=== PATIENT | female | born 1985 | race Two or more races ===

== ENCOUNTER → 2024-05-27 15:59 | Outpatient (REF) | payer OTHER, SELFPAY | LOC: PNTC 15:59 | PROVIDERS: ATTENDING PHYSICIAN Obstetrics & Gynecology | DX: Z36.0 Encounter for antenatal screening for chromosomal anomalies (principal); Z36.82 Encounter for antenatal screening for nuchal translucency | CPT/HCPCS: 76801; 76813 ==

== ENCOUNTER 2024-11-15 14:53 | Emergency (ER) | payer OTHER, SELFPAY ==
[2024-11-15 14:59] VITALS: BP 141/95
[2024-11-15 15:02] VITALS: BP 115/83
--- NOTE | 2024-11-15 18:03 | ED.GENMED ---
History of Present Illness
General
Chief Complaint: Jaw Pain
Source: patient
Exam Limitations: none
Time Seen by Provider: 11/15/24 16:11
Nursing documentation reviewed up to this point in time: agreed with
History of Present Illness
History of Present Illness:
39-year-old female presenting to the emergency department today with concerns of potential jaw dislocation prior to arrival. Her description her left side of her jaw seem to come out of place she put this back in the place otherwise has had some
achiness to the area since. Denies any additional symptoms no trouble swallowing or breathing increased discomfort with opening her mouth. This was after chewing on some chocolate.
Past History
Past History
ED Past Medical History: Psychiatric (ADHD)
ED Past Surgical History: and Other ([place] teeth extraction)
Social History
Tobacco: Non-smoker
Alcohol: None
Drug: None
Living: with family
Review of Systems
Review of Systems
Allergies reviewed?: Yes
All Other Systems: ROS reviewed and negative except as documented in HPI and ROS
Phy Exam
Physical Exam
Physical Exam:
GENERAL: Alert , in no apparent distress
EYE: pupils equal and reactive
NECK: Supple, no significant adenopathy.
ENT: No focal tenderness to the jaws bilaterally. No visible changes able to open the mouth roughly 1 cm with no visible abnormalities to the oral mucosa. o/p clr, mmm.
CARDIAC: Regular rate and rhythm .
LUNGS: Clear breath sounds bilaterally, no acute respiratory distress, no wheezes/rales/rhonchi
ABDOMEN: Soft, without focal tenderness, no r/g, no cvat
NEUROLOGICAL: Alert and oriented, no focal neuro deficits
SKIN: Warm and dry, skin intact.
MUSCULOSKELETAL: No edema, well perfused.
PSYCH: Normal and appropriate interaction.
Course
Vital Signs
Initial and Last Documented VS:
Initial Vital Signs
Temp Pulse Resp BP Pulse Ox
98.5 F 101 18 141/95 99
11/15/24 14:59 11/15/24 14:59 11/15/24 14:59 11/15/24 14:59 11/15/24 14:59
Last Documented Vital Signs
Temp Pulse Resp BP Pulse Ox
98.5 F 101 18 115/83 99
11/15/24 14:59 11/15/24 14:59 11/15/24 14:59 11/15/24 15:02 11/15/24 14:59
MDM/Problems Addressed
MDM/Problems Addressed:
39-year-old female presenting to the emergency department today with concerns of what sounds to be a description of a jaw dislocation prior to arrival that she relocated prior to arrival. Currently 38 weeks . Reassuring physical
examination here. No evidence of fracture no focal tenderness. Otherwise advised for soft diet and close outpatient follow-up. Return precautions given.
*Critical Care Note
Total Time (30-74mins, 75-104mins- exclusive of procedures): Not Applicable
ED Attending Note
-
Portions of this chart may have been created with voice recognition software.� Occasional wrong word or��sound alike� substitutions may have occurred due to the inherent limitations of voice recognition software.
Discharge Plan
Departure
Patient Disposition: Home (Routine Discharge)
Date of Disposition: 11/15/24
Time of Disposition: 18:04
Patient with high blood pressure during this ER visit?: No
Condition: Good
Covid-19: Not Applicable
Discharge Problem:
Dislocated jaw
Instructions: Dislocated Jaw (DC)
Prescriptions:
No Action
levothyroxine [Synthroid] 25 mcg Tablet
25 mcg PO DAILY
prenat.vits,willam,lbd-wjji-cotjm Tablet
1 tab PO DAILY
acetaminophen 325 mg Tablet
650 mg PO Q4HPRN PRN (Reason: mild pain) Qty: 0 0RF
sennosides-docusate sodium [Senna Plus] 8.6-50 mg Tablet
1 tab PO DAILYPRN PRN (Reason: constipation) Qty: 0 0RF
levothyroxine 25 mcg Tablet
25 mcg PO DAILY AT 0700 Qty: 0 0RF
ibuprofen 600 mg Tablet
400 mg PO Q4HPRN PRN (Reason: moderate pain/cramps) Qty: 0 0RF
Referrals:
Pk Cary DO [Family Provider] -
Steve Brian MD [Active] - Follow up in 5-7 days
Activity Restrictions/Additional Instructions:
You came to the emergency department today with concerns of a jaw issue.. Reassuring assessment. You may have had a dislocated jaw that self reduced. Please follow-up with ENT as needed. Return to the emergency department any worsening, new or
concerning symptoms.
Interventions
Interventions:
*Risk Screen - Suicide Last Done: 11/15/24 14:59
*General Assessment Last Done: 11/15/24 14:59
*Neglect/Abuse Screening Last Done: 11/15/24 14:59
*ED COVID-19 Vaccine History Last Done: 11/15/24 14:59
Discharge Date and Time
Print Language: GEORGIAN
== END 2024-11-15 18:09 | disposition home or self-care (01) ==
LOC: EMR 14:53
PROVIDERS: EMERGENCY PHYSICIAN Emergency Medicine; FAMILY PHYSICIAN Family Medicine
DX: S03.00XA Dislocation of jaw, unspecified side, initial encounter (principal); X58.XXXA Exposure to other specified factors, initial encounter; Z33.1 Pregnant state, incidental; Z88.8 Allergy status to other drugs, medicaments and biological substances
CPT/HCPCS: 99282

== ENCOUNTER 2024-12-01 21:11 | Inpatient (IN) | payer OTHER, SELFPAY ==
[2024-12-01 21:27] VITALS: BP 130/76; BMI 37.5
[2024-12-01 22:11] LABS: % Basophils 0.2 % (0-2); % Eosinophils 0.3 % (0-6); % Immature Granulocytes 0.4 % (0-0.5); % Lymphocytes 11.7 % (20.5-51.1); % Monocytes 3.5 % (1.7-9.3); % Neutrophils 83.9 % (42.2-75.2); Absolute Immature Granulocytes 0.1 10^3/uL (0-0.05); Absolute Lymphocytes 1.3 10^3/uL (1.2-3.4); Absolute Monocytes 0.4 10^3/uL (0.1-0.6); Absolute Neutrophils 9.6 10^3/uL (1.4-6.5); Hematocrit 37.6 % (37.0-47.0); Hemoglobin 12.8 g/dL (12.0-16.0); Mean Corpuscular Hgb 29.1 pg (27.0-31.0); Mean Corpuscular Volume 85.5 fL (81.0-99.0); Mean Platelet Volume 9.1 fL (7.4-10.4); Nucleated Red Blood Cells % 0 %; Platelet Count 356 10^3/uL (130-400); White Blood Cell Count 11.4 10^3/uL (4.8-10.8)
[2024-12-01] MEDS: SUBLIMAZE 100 MCG EPIDURAL (22:55)
[2024-12-01] MEDS: FENTANYL/BUPIVACAINE 100 EPIDURAL (22:55)
[2024-12-02] MEDS: PRENATAL PLUS PO ×2 (06:58→08:28)
[2024-12-02] MEDS: SYNTHROID 50 MCG PO (06:58)
[2024-12-02] MEDS: ZOFRAN 4 MG IV (07:34)
[2024-12-02] MEDS: FENTANYL/BUPIVACAINE 100 EPIDURAL (07:45)
[2024-12-02] MEDS: PITOCIN 30 UNITS/NSS 500 ML IV (09:59)
[2024-12-02] MEDS: TYLENOL 650 MG PO (12:10)
[2024-12-02] MEDS: MOTRIN 600 MG PO (21:08)
[2024-12-03 04:42] LABS: Hemoglobin 10.6 g/dL (12.0-16.0)
[2024-12-03] MEDS: SYNTHROID 50 MCG PO (05:45)
[2024-12-03] MEDS: PRENATAL PLUS 1 TABLET PO (08:59)
[2024-12-03] MEDS: SENOKOT-S 1 TABLET PO (08:59)
[2024-12-03] MEDS: MOTRIN 600 MG PO ×2 (12:00→20:42)
[2024-12-03] MEDS: TYLENOL 650 MG PO ×2 (12:01→20:43)
[2024-12-03] MEDS: FEOSOL 325 MG PO (21:41)
[2024-12-04] MEDS: SYNTHROID 50 MCG PO (06:15)
[2024-12-04] MEDS: PRENATAL PLUS 1 TABLET PO (09:35)
[2024-12-04] MEDS: FEOSOL 325 MG PO (09:35)
[2024-12-04] MEDS: MOTRIN 600 MG PO (09:38)
[2024-12-04] MEDS: TYLENOL 650 MG PO (09:38)
[2024-12-04] MEDS: SENOKOT-S 1 TABLET PO (09:40)
[2024-12-05 16:37] LABS: Syphilis/T. pallidum Ab Reflex Negative (Negative)
== END 2024-12-04 15:33 | disposition home or self-care (01) | DRG 807 ==
LOC: LDRP 21:11
PROVIDERS: Obstetrics & Gynecology; Student in an Organized Health Care Education/Training Program; ADMITTING PHYSICIAN Obstetrics & Gynecology
PROC: 10E0XZZ Delivery of Products of Conception, External Approach (ICD-10-PCS; 2024-12-02)
PROC: 0UQMXZZ Repair Vulva, External Approach (ICD-10-PCS; 2024-12-02)
DX: O34.219 Maternal care for unspecified type scar from previous cesarean delivery (principal); Z37.0 Single live birth; O70.0 First degree perineal laceration during delivery; Z3A.40 40 weeks gestation of pregnancy; O99.284 Endocrine, nutritional and metabolic diseases complicating childbirth; E03.9 Hypothyroidism, unspecified
CPT/HCPCS: 36415; 85014; 85018; 85025; 86780; 86850; 86900; 86901

== ENCOUNTER 2025-06-23 00:39 | Emergency (ER) | payer OTHER, SELFPAY ==
[2025-06-23 00:43] VITALS: BP 146/93
--- NOTE | 2025-06-23 04:17 | ED.GENMED ---
History of Present Illness
General
Chief Complaint: Throat Problem
Source: patient
Exam Limitations: none
Time Seen by Provider: 06/23/25 04:11
Nursing documentation reviewed up to this point in time: agreed with
History of Present Illness
History of Present Illness:
Note:
CHIEF COMPLAINT(S)
Difficulty swallowing and persistent coughing with painful throat irritation following ingestion of medication tablets.
HISTORY OF PRESENT ILLNESS
The patient is a 40-year-old female with a past medical history ADHD, anxiety, depression, who presented with complaints of persistent coughing, throat irritation, and difficulty swallowing after ingesting two magnesium glycinate tablets. She
reports that upon swallowing the tablets, she immediately felt as though they were stuck, which prompted her to cough vigorously. The coughing led to emesis, which was repeated four times, resulting in the expulsion of one whole pill. She believes
that when she was coughing, the other pill broke and the powder within the pill she inhaled. Despite her efforts to alleviate the sensation by changing positions, the feeling of an obstruction persisted, accompanied by a burning sensation in her
throat, intensified with each cough. She described a persistent chalky taste with each cough, indicative of potential tablet residue.
After attempting various positions to alleviate discomfort, the sensation persisted, leading her to seek medical attention. The patient did not experience dyspnea at the time of ingestion but noted significant discomfort. After waiting here for some
time, she noted that drinking water provided some relief to the burning sensation experienced in her tongue and nose. However, she continues to feel a burning sensation on her tongue when coughing. When she is not coughing, she has no burning
sensation. She has no pain with swallowing.
PHYSICAL EXAM
- Nursing notes reviewed and vital signs reviewed.
General: Patient is well appearing and in no acute distress; non-toxic
Skin: Warm and dry, no rashes or lesions
Head: Normocephalic, atraumatic
Eyes: Sclera non-icteric. EOMs intact.
Mouth: Uvula midline, mild pharyngeal erythema
Cardiac: Regular rate and rhythm, no murmurs
Pulm: Normal respiratory effort, no wheezes, rales, rhonchi, no stridor, lungs clear to auscultation
Abdomen: No abdominal tenderness to palpation
Neuro: CN II-XII intact, no focal neurologic deficits.
Psychiatric: Appropriate mood and affect.
PLAN
- Initiate treatment with nebulized saline to provide moistening and relief to the throat and respiratory passages.
- Encourage the use of [id number] nebulizers to maintain relief over the next few days.
- Reassess if symptoms worsen or if productive cough with mucus, fever, or signs of infection such as pneumonia develop.
- Environmental Resource Specialist the patient to avoid magnesium tablets for a few days to allow healing and prevent further irritation.
- Provide a saline solution prescription to the patient�s pharmacy.
- Follow-up is recommended if new symptoms arise or existing symptoms worsen.
DIFFERENTIAL DIAGNOSIS
The differential diagnosis includes, in no particular order and is not limited to:
1. Foreign body aspiration
2. Esophageal obstruction
3. Pill esophagitis
4. Esophageal ulceration
5. Tracheitis
6. Acute bronchitis
7. Laryngitis
8. Chemical irritation of the esophagus
9. Aspiration pneumonia
10. Gastroesophageal reflux disease
CHART REVIEW
Reviewed obstetrics discharge summary from 12/02/2024
MDM/disposition
40-year-old female presents emergency room today with concerns of aspiration of powder pill capsule. She is attempting to swallow a large magnesium pills at the same time. She normally takes 1 at a time. When she is attempting to swallow, she
thought the pill got stuck in her esophagus and she threw up vomiting wanting the pills. When she threw up, she started to feel some powder and started coughing. She aspirated some of the powder. On physical exam she is well-appearing no acute
distress. Well she has been in the emergency department. She has been coughing up the powder and she now feels much more comfortable. She has been drinking water which has been helping. She also received a nebulized saline treatment which also
improved her symptoms. She does not appear to have any pharyngeal pain or pain with swallowing, doubt pill esophagitis. Suspect tracheal irritation from aspiration. X-ray shows no evidence of aspiration pneumonia. Soft tissue neck x-ray shows no
foreign body. Patient stable for discharge. Discussed follow-up with PCP.
Past History
Past History
ED Past Medical History: Psychiatric (ADHD)
ED Past Surgical History: and Other ([place] teeth extraction)
Social History
Tobacco: Non-smoker
Alcohol: None
Drug: None
Living: with family
Phy Exam
Physical Exam
Physical Exam:
see hpi
Course
Orders/Labs/Results
Orders:
Orders
06/23/25 00:54
CR Soft Tissue Neck Urgent
Comment:
Reason For Exam: pill aspiration
Chest [CR Chest - 2 Views ] Urgent
Comment:
Reason For Exam: pill aspiration
Vital Signs
Initial and Last Documented VS:
Initial Vital Signs
Temp Pulse Resp BP Pulse Ox
98.0 F 88 20 146/93 98
06/23/25 00:43 06/23/25 00:43 06/23/25 00:43 06/23/25 00:43 06/23/25 00:43
Last Documented Vital Signs
Temp Pulse Resp BP Pulse Ox
98.0 F 64 18 118/72 98
06/23/25 00:43 06/23/25 05:11 06/23/25 05:11 06/23/25 05:11 06/23/25 05:11
*Pulse Oximetry
SaO2: 98
Oxygen Mode of Delivery: Room air
Patient hypoxic: no
*Critical Care Note
Total Time (30-74mins, 75-104mins- exclusive of procedures): Not Applicable
ED Attending Note
-
Portions of this chart may have been created with voice recognition software.� Occasional wrong word or��sound alike� substitutions may have occurred due to the inherent limitations of voice recognition software.
Discharge Plan
Departure
Patient Disposition: Home (Routine Discharge)
Date of Disposition: 06/23/25
Time of Disposition: 04:57
Patient with high blood pressure during this ER visit?: Yes
Condition: Good
Discharge Problem:
Aspiration into airway, Pill dysphagia
Instructions: BLOOD PRESSURE
Prescriptions:
New
sodium chloride 0.9 % solution for nebulization
3 ml inhalation Q8H PRN (Reason: irritation) Qty: 90 0RF
No Action
prenat.vits,willam,ttf-axtz-gybog Tablet
1 tab PO DAILY
levothyroxine 25 mcg tablet
50 mcg PO DAILY AT 0700
acetaminophen 325 mg Tablet
650 mg PO Q4HPRN PRN (Reason: mild pain) Qty: 0 0RF
sennosides-docusate sodium 8.6-50 mg Tablet
1 tab PO DAILYPRN PRN (Reason: constipation) Qty: 0 0RF
ferrous sulfate [FeroSul] 325 mg (65 mg iron) Tablet
325 mg PO DAILY Qty: 0 0RF
ibuprofen 600 mg Tablet
600 mg PO Q6HPRN PRN (Reason: moderate pain/cramps) Qty: 45 0RF
Referrals:
Pk Cary DO [Family Provider, Family Practice]
Activity Restrictions/Additional Instructions:
Please follow up with your primary care provider in one week for reassessment.
PLEASE RETURN EMERGENCY DEPARTMENT SHOULD YOU DEVELOP AN ACUTE WORSENING OR SYMPTOMS, CHEST PAIN, SHORTNESS OF BREATH, DIFFICULTY BREATHING, FEVERS OR CHILLS, COUGHING OF MUCUS, OR ANY OTHER SIGNS OR SYMPTOMS CONCERNING YOU.
Interventions
Interventions:
*Risk Screen - Suicide Last Done: 06/23/25 00:43
*General Assessment Last Done: 06/23/25 03:48
*Neglect/Abuse Screening Last Done: 06/23/25 01:02
*ED- Fall Risk Assessment Last Done: 06/23/25 01:02
*ED COVID-19 Vaccine History Last Done: 06/23/25 01:02
*Nursing Disposition Last Done: 06/23/25 05:11
ED-EENT Assessment Last Done: 06/23/25 01:02
ED- Pulmonary Assessment Last Done: 06/23/25 01:02
Discharge Date and Time
Discharge Date/Time: 06/23/25 05:12
Print Language: AFGHAN
[2025-06-23 05:11] VITALS: BP 118/72
== END 2025-06-23 05:12 | disposition home or self-care (01) ==
LOC: EMR 00:39
PROVIDERS: EMERGENCY PHYSICIAN Emergency Medicine; FAMILY PHYSICIAN Family Medicine
DX: T17.998A Other foreign object in respiratory tract, part unspecified causing other injury, initial encounter (principal); R13.10 Dysphagia, unspecified; W44.8XXA Other foreign body entering into or through a natural orifice, initial encounter; R03.0 Elevated blood-pressure reading, without diagnosis of hypertension; F90.9 Attention-deficit hyperactivity disorder, unspecified type; F41.9 Anxiety disorder, unspecified; F32.A Depression, unspecified
CPT/HCPCS: 99284; 70360; 71046